=== PATIENT | female | born 1930 | race Caucasian/White ===

== ENCOUNTER 2017-05-25 20:03 | Emergency (ER) | payer MEDICARE, BC ==
[~2017-05-25] VITALS: Ht 172.7 cm; Wt 71.7 kg
[~2017-05-25 20:03] MED LIST: BYSTOLIC5 MG PO; DOCU100C28 PO; HYDR-2762 PO; MAGN400C PO; METF500T4 PO; MIRA50TA PO
--- NOTE | 2017-05-25 21:49 | PHYS DOC ---
Past Medical History Past Medical History: A-Fib, Diabetes-Type II, DVT, Hypertension Additional Past Surgical Histo: Back Additional Information: non smoker Alcohol Use: None Drug Use: None Adult General Chief Complaint Chief Complaint: SHOULDER INJURY HPI HPI Patient is a 87 year old female who presents with fall and left shoulder pain. She fell at 1900 PM. Did not strike head; no LOC. No neck or back pain. She landed on her left shoulder. No numbness or tingling of extremity. No other complaints or injuries Review of Systems Review of Systems Constitutional: Denies fever or chills Eyes: Denies change in visual acuity, redness, or eye pain HENT: Denies nasal congestion or sore throat Respiratory: Denies cough or shortness of breath Cardiovascular: No chest pain GI: Denies abdominal pain, nausea, vomiting, bloody stools or diarrhea : Denies dysuria or hematuria Musculoskeletal: POS joint pain Integument: Denies rash or skin lesions Neurologic: Denies headache, focal weakness or sensory changes Current Medications Current Medications Current Medications Medications (Trade) Dose Ordered Sig/Arnulfo Start Time Stop Time Status Last Admin Dose Admin Acetaminophen/ Codeine Phosphate (Tylenol #3) 1 tab 1X ONCE 05/25/17 23:15 05/25/17 23:16 DC 05/25/17 23:13 1 TAB Allergies Allergies Allergies Coded Allergies Type Severity Reaction Last Updated Verified celecoxib Allergy Intermediate Nausea and Vomiting 08/02/15 Yes Physical Exam Physical Exam Constitutional: Well developed, well nourished, no acute distress, non-toxic appearance. HENT: Normocephalic, atraumatic, bilateral external ears normal, oropharynx moist, no oral exudates, nose normal. No areas of trauma to her head Eyes: PERRLA, EOMI, conjunctiva normal, no discharge. Neck: Normal range of motion, no tenderness, supple, no stridor. Nontender to palpation of cervical spine Cardiovascular:Heart rate regular rhythm, no murmur Lungs & Thorax: Bilateral breath sounds clear to auscultation Abdomen: Bowel sounds normal, soft, no tenderness, no masses, no pulsatile masses. Skin: Warm, dry, no erythema, no rash. Back: No tenderness, no CVA tenderness. Extremities: Left shoulder: no cyanosis, no clubbing, no edema. Neurovascular intact distally. Limited range of motion due to pain. Pain on palpation of the left shoulder. Neurologic: Alert and oriented X 3, normal motor function, normal sensory function, no focal deficits noted. Psychologic: Affect normal, judgement normal, mood normal. Current Patient Data Vital Signs Vital Signs Date Time Temp Pulse Resp B/P (MAP) Pulse Ox O2 Delivery O2 Flow Rate FiO2 05/25/17 23:25 86 20 183/86 (118) 97 05/25/17 21:15 98.2 Room Air 98.2 Radiology/Procedures Radiology/Procedures Left shoulder x-ray interpreted by myself at 23:10 PM: Proximal humeral fracture , impacted. No displacement. Course & Med Decision Making Course & Med Decision Making Xray with fracture of proximal humerus. NVI distally. Patient tolerating fracture well. Sling placed and tylenol #3 dosed. Here with spouse. Informed to sleep in recliner for comfort. Call orthopedics in am. I have spoken with the patient and/or caregivers. I have explained the patient' s condition, diagnosis and treatment plan based on the information available to me at this time. I have answered the patient's and/or caregiver's questions and addressed any concerns. The patient and/or caregivers have as good an understanding of the patient's diagnosis, condition and treatment plan as can be expected at this point. The patient's condition is stable and appropriate for discharge from the emergency department. The patient will pursue further outpatient evaluation with the primary care physician or other designated or consulting physician as outlined in the discharge instructions. The patient and/or caregivers are agreeable to this plan of care and follow-up instructions have been explained in detail. The patient and/or caregivers have received these instructions in written format and have expressed an understanding of the discharge instructions. The patient and/or caregivers are aware that any significant change in condition or worsening of symptoms should prompt an immediate return to this or the closest emergency department or a call to 911. Dragon Disclaimer Dragon Disclaimer This electronic medical record was generated, in whole or in part, using a voice recognition dictation system. Departure Departure Impression: Primary Impression: Humeral head fracture Additional Impression: Fall Disposition: 01 HOME, SELF-CARE Condition: STABLE Referrals: KEILA ALAS (PCP) Patient Instructions: Shoulder Fracture (Proximal Humerus or Glenoid)-[facility] Additional Instructions: Leave and sling. Ice for the first 24 hours. Call orthopedic surgery in the morning to set up appointment. You will be more comfortable sleeping upright in a recliner. Scripts Acetaminophen With Codeine (ACETAMINOPHEN-COD #3 TABLET) 1 Each Tablet 1 TAB PO PRN Q4HRS Y for PAIN, #14 TAB Prov: TIMBO JOHNSON MD 05/25/17 Problem Qualifiers Primary Impression: Humeral head fracture Encounter type: initial encounter Fracture type: closed Laterality: left Qualified Codes: S42.292A - Other displaced fracture of upper end of left humerus, initial encounter for closed fracture Additional Impression: Fall Encounter type: initial encounter Qualified Codes: W19.XXXA - Unspecified fall, initial encounter TIMBO JOHNSON MD May 25, 2017 21:49
[2017-05-25] MEDS ORDERED: ACET1TAB33 PO (23:13)
[2017-05-25] MEDS ORDERED: ACETAMINOPHEN/CODEINE 300/30MG TABLET. PO ONE (23:15)
[2017-05-25 23:25] VITALS: BP 183/86
--- NOTE | 2017-05-26 08:37 | RAD ---
EXAM: Right humerus, 2 views; right shoulder, 2 views. HISTORY: Fall. COMPARISON: None. FINDINGS: Frontal and lateral views of the left humerus and internal and external rotation views of the left shoulder are obtained. There is a comminuted left humeral head and neck fracture. There is slight widening of the glenohumeral joint space which is likely projectional rather than due to a subluxation injury. There is left infrahilar atelectasis or pleural-parenchymal scarring. There is a metallic clip overlying the left lower thorax. There are healed left rib fractures. IMPRESSION: Comminuted left humeral head and neck fracture.
== END 2017-05-25 23:25 | disposition home or self-care (01) ==
LOC: ER 20:03
DX: S42.292A Other displaced fracture of upper end of left humerus, initial encounter for closed fracture (principal); E11.9 Type 2 diabetes mellitus without complications; I10 Essential (primary) hypertension; I48.91 Unspecified atrial fibrillation; Z86.718 Personal history of other venous thrombosis and embolism; Z88.8 Allergy status to other drugs, medicaments and biological substances; Z98.890 Other specified postprocedural states; W18.39XA Other fall on same level, initial encounter; Y93.89 Activity, other specified; Y99.8 Other external cause status; Y92.89 Other specified places as the place of occurrence of the external cause
CPT/HCPCS: 73030; 73060; 99284

== ENCOUNTER 2019-06-25 11:59 | Inpatient (IN) | payer MEDICARE, BC ==
[~2019-06-25] VITALS: Ht 172.7 cm; Wt 70.8 kg
[~2019-06-25 11:59] MED LIST changes: +ACET1TAB33 PO; +ASPI-612 PO; +ATOR40TA59 PO; +GLIP5TAB10 PO; -HYDR-2762 PO; +HYDR-2765 PO; +LOSA1TAB19 PO; +METF10007 PO; +METF500T16 PO; -METF500T4 PO; +METO25TA4 PO; +TICA90TA PO
[2019-06-25] MEDS ORDERED: ASPIRIN CHEWABLE 81 MG TABLET. PO ONE (12:15)
--- NOTE | 2019-06-25 12:18 | PHYS DOC ---
Past Medical History Past Medical History: A-Fib, Diabetes-Type II, DVT, Hypertension Additional Past Medical Histor: BREAST CANCER Additional Past Surgical Histo: Back Alcohol Use: None Drug Use: None Adult General Chief Complaint Chief Complaint: CHEST PAIN HPI HPI 89-year-old female who underlying history of hypertension, coronary artery disease with stent placement December 2017, diabetes presents to the emergency Department complaints of right shoulder blade pain, right chest pain off and on 2 days. She is well describes shortness of breath with exertion. Patient denies any nausea, vomiting, fever, abdominal pain. She does have a cough which has been somewhat productive today with yellow sputum. Given her complaints of chest pain and back pain she presented to the ER for further evaluation. Review of Systems Review of Systems Constitutional: Denies fever or chills [] Eyes: Denies change in visual acuity, redness, or eye pain [] HENT: Denies nasal congestion or sore throat [] Respiratory: cough, shortness of breath with exertion Cardiovascular: No additional information not addressed in HPI [] GI: Denies abdominal pain, nausea, vomiting, bloody stools or diarrhea [] : Denies dysuria or hematuria [] Musculoskeletal: pain in right back shoulder blade Neurologic: Denies headache, focal weakness or sensory changes [] All other systems were reviewed and found to be within normal limits, except as documented in this note. Current Medications Current Medications Current Medications Medications (Trade) Dose Ordered Sig/[facility] Start Time Stop Time Status Last Admin Dose Admin Aspirin (Children'S Aspirin) 324 mg 1X ONCE 06/25/19 12:15 06/25/19 12:16 DC 06/25/19 12:22 243 MG Nitroglycerin (Nitrostat) 0.4 mg PRN Q5MIN PRN 06/25/19 12:30 06/26/19 15:44 DC 06/25/19 12:58 0.4 MG Allergies Allergies Allergies Coded Allergies Type Severity Reaction Last Updated Verified celecoxib Allergy Intermediate Nausea and Vomiting 08/02/15 Yes Physical Exam Physical Exam Constitutional: Well developed, well nourished, no acute distress, non-toxic appearance. [] HENT: Normocephalic, atraumatic, bilateral external ears normal, oropharynx moist, no oral exudates, nose normal. [] Eyes: PERRLA, EOMI, conjunctiva normal, no discharge. [] Cardiovascular:Heart rate regular rhythm, no murmur [] Lungs & Thorax: Bilateral breath sounds clear to auscultation [] Abdomen: Bowel sounds normal, soft, no tenderness, no masses, no pulsatile masses. [] Skin: Warm, dry, no erythema, no rash. [] Back: No tenderness, no CVA tenderness. [] Extremities: No tenderness, no edema. [] Neurologic: Alert and oriented X 3, no focal deficits noted. [] Psychologic: Affect normal, judgement normal, mood normal. [] Current Patient Data Vital Signs Vital Signs Date Time Temp Pulse Resp B/P (MAP) Pulse Ox O2 Delivery O2 Flow Rate FiO2 06/25/19 13:22 72 19 127/60 (82) 95 Room Air 06/25/19 12:04 97.8 97.8 Lab Values Laboratory Tests Test 06/25/19 12:28 White Blood Count 6.9 x10^3/uL (4.0-11.0) Red Blood Count 3.89 x10^6/uL (3.50-5.40) Hemoglobin 12.2 g/dL (12.0-15.5) Hematocrit 35.9 % (36.0-47.0) L Mean Corpuscular Volume 92 fL (79-100) Mean Corpuscular Hemoglobin 31 pg (25-35) Mean Corpuscular Hemoglobin Concent 34 g/dL (31-37) Red Cell Distribution Width 16.3 % (11.5-14.5) H Platelet Count 202 x10^3/uL (140-400) Neutrophils (%) (Auto) 51 % (31-73) Lymphocytes (%) (Auto) 35 % (24-48) Monocytes (%) (Auto) 13 % (0-9) H Eosinophils (%) (Auto) 1 % (0-3) Basophils (%) (Auto) 1 % (0-3) Neutrophils # (Auto) 3.5 x10^3/uL (1.8-7.7) Lymphocytes # (Auto) 2.4 x10^3/uL (1.0-4.8) Monocytes # (Auto) 0.9 x10^3/uL (0.0-1.1) Eosinophils # (Auto) 0.1 x10^3/uL (0.0-0.7) Basophils # (Auto) 0.0 x10^3/uL (0.0-0.2) Sodium Level 132 mmol/L (136-145) L Potassium Level 4.4 mmol/L (3.5-5.1) Chloride Level 96 mmol/L (98-107) L Carbon Dioxide Level 27 mmol/L (21-32) Anion Gap 9 (6-14) Blood Urea Nitrogen 17 mg/dL (7-20) Creatinine 0.9 mg/dL (0.6-1.0) Estimated GFR (Cockcroft-Gault) 59.2 BUN/Creatinine Ratio 19 (6-20) Glucose Level 219 mg/dL (70-99) H Calcium Level 9.4 mg/dL (8.5-10.1) Total Bilirubin 0.6 mg/dL (0.2-1.0) Aspartate Amino Transferase (AST) 27 U/L (15-37) Alanine Aminotransferase (ALT) 33 U/L (14-59) Alkaline Phosphatase 85 U/L (46-116) Troponin I Quantitative < 0.017 ng/mL (0.000-0.055) YP-Hlv-H-Type Natriuretic Peptide 75 pg/mL (0-449) Total Protein 7.4 g/dL (6.4-8.2) Albumin 4.2 g/dL (3.4-5.0) Albumin/Globulin Ratio 1.3 (1.0-1.7) Laboratory Tests 06/25/19 12:28 Laboratory Tests 06/25/19 12:28 EKG EKG EKG reviewed, nonurgent, heart rate 72, left axis deviation, no evidence of ST elevation [place],[] Interpretation Time: Interpretation time 1210 Radiology/Procedures Radiology/Procedures [facility] [address] [place], [place] [id number] IMAGING REPORT Signed PATIENT: REAGAN EUCEDA LACCOUNT: [id number] : 1930 LOCATION: ER AGE: 89 SEX: F EXAM STATUS: PRE ER ORD. PHYSICIAN: ALEX NORWOOD MD REASON: chest pain PROCEDURE: PORTABLE CHEST 1V EXAM: Chest, single view. HISTORY: Chest pain. COMPARISON: None. FINDINGS: A frontal view of the chest is obtained. There is no infiltrate, pleural effusion or pneumothorax. The heart is normal in size. There are metallic clips overlying the left lower thorax. There are few calcified granulomas. There is nodularity overlying the upper lobes due to prominent first rib ends. There is a chronic left humeral neck fracture. IMPRESSION: No acute pulmonary finding. Electronically signed by: Coleen Bella MD (06/25/2019 12:25 PM) [facility] DICTATED and SIGNED BY: COLEEN BELLA MD DATE: 06/25/19 1225 [] Course & Med Decision Making Course & Med Decision Making Pertinent Labs and Imaging studies reviewed. (See chart for details) []89-year-old female who underlying history of hypertension, coronary artery disease with stent placement December 2017, diabetes presents to the emergency Department complaints of right shoulder blade pain, right chest pain off and on 2 days. She is well describes shortness of breath with exertion. Patient denies any nausea, vomiting, fever, abdominal pain. She does have a cough which has been somewhat productive today with yellow sputum. Given her complaints of chest pain and back pain she presented to the ER for further evaluation. Labs/Imaging reviewed Patient provided with ASA/NTG upon arrival CXR without acute process CTA chest reviewed EKG reviewed without acute changes Discussed admit with hospitalist (JADA Alvarenga Disclaimer Lyle Disclaimer This electronic medical record was generated, in whole or in part, using a voice recognition dictation system. The HEART Score for CP Pts HEART Score for Chest Pain: HEART Score for Chest Pain Response (Comments) Value History Moderately Suspicious 1 ECG Nonspecific Repolarizatio 1 Age > 65 2 Risk Factors >3 Risk Factors or Hx CAD 2 Troponin < Normal Limit 0 Total 6 Risk Factors: Risk Factors: DM, Current or recent (<one month) smoker, HTN, HLP, family history of CAD, obesity. Risk Scores: Score 0 - 3: 2.5% MACE over next 6 weeks - Discharge Home Score 4 - 6: 20.3% MACE over next 6 weeks - Admit for Clinical Observation Score 7 - 10: 72.7% MACE over next 6 weeks - Early Invasive Strategies Departure Departure Impression: Primary Impression: Chest pain Disposition: ADMITTED INPATIENT Admitting Physician: MIKAEL Referrals: KEILA ALAS (PCP) Scripts Acetaminophen (TYLENOL) 325 Mg Tablet 650 MG PO PRN Q4HRS PRN for FEVER for 30 Days, #60 TAB Prov: ROSMERY ALVARADO MD 06/26/19 Nitroglycerin (NITROSTAT) 0.4 Mg Tab.subl 0.4 MG SL PRN Q5MIN PRN for CHEST PAIN for 30 Days, #30 TAB Prov: ROSMERY ALVARADO MD 06/26/19 Problem Qualifiers Primary Impression: Chest pain Chest pain type: unspecified Qualified Codes: R07.9 - Chest pain, unspecified ALEX NORWOOD MD Jun 25, 2019 12:18
--- NOTE | 2019-06-25 12:28 | RAD ---
EXAM: Chest, single view. HISTORY: Chest pain. COMPARISON: None. FINDINGS: A frontal view of the chest is obtained. There is no infiltrate, pleural effusion or pneumothorax. The heart is normal in size. There are metallic clips overlying the left lower thorax. There are few calcified granulomas. There is nodularity overlying the upper lobes due to prominent first rib ends. There is a chronic left humeral neck fracture. IMPRESSION: No acute pulmonary finding. Electronically signed by: Coleen Ro MD (06/25/2019 12:25 PM) [facility]
[2019-06-25] MEDS ORDERED: NITROGLYCERIN SUBLINGUAL 0.4 MG BOTTLE OF 25. SL PRN ×2 (12:30→13:30)
[2019-06-25 12:40] LABS: BASO % 1 % (0-3); EOS # 0.1 x10^3/uL (0.0-0.7); EOS % 1 % (0-3); HEMATOCRIT 35.9 % (36.0-47.0); HEMOGLOBIN 12.2 g/dL (12.0-15.5); LYMPH # 2.4 x10^3/uL (1.0-4.8); LYMPH % 35 % (24-48); MEAN CORPUSCULAR HEMOGLOBIN 31 pg (25-35); MEAN CORPUSCULAR HGB CONC 34 g/dL (31-37); MEAN CORPUSCULAR VOLUME 92 fL (79-100); MONO # 0.9 x10^3/uL (0.0-1.1); MONO % 13 % (0-9); NEUT # 3.5 x10^3/uL (1.8-7.7); NEUT % 51 % (31-73); PLATELET COUNT 202 x10^3/uL (140-400); RED BLOOD COUNT 3.89 x10^6/uL (3.50-5.40); RED CELL DISTRIBUTION WIDTH 16.3 % (11.5-14.5); WHITE BLOOD COUNT 6.9 x10^3/uL (4.0-11.0)
[2019-06-25 12:50] LABS: CALCIUM 9.4 mg/dL (8.5-10.1); CREATININE 0.9 mg/dL (0.6-1.0); GFR 59.2; POTASSIUM 4.4 mmol/L (3.5-5.1)
[2019-06-25 12:56] LABS: ALBUMIN 4.2 g/dL (3.4-5.0); ALBUMIN/GLOBULIN RATIO 1.3 (1.0-1.7); TOTAL BILIRUBIN 0.6 mg/dL (0.2-1.0); TOTAL PROTEIN 7.4 g/dL (6.4-8.2)
[2019-06-25] MEDS ORDERED: ONDANSETRON PF 4 MG/2 ML VIAL. IV PRN (13:30)
[2019-06-25] MEDS ORDERED: ACETAMINOPHEN 325 MG TABLET. PO PRN (13:30)
[2019-06-25] MEDS ORDERED: IOHEXOL 350 MG/ML 100 ML VIAL. IV ONE (13:45)
[2019-06-25 14:50] VITALS: BP 145/63
[2019-06-25] MEDS ORDERED: ACETAMINOPHEN/CODEINE 300/30MG TABLET. PO PRN (15:15)
--- NOTE | 2019-06-25 15:19 | RAD ---
CT ANGIOGRAPHY CHEST History: Chest pain. Radiating to back. Technique: CT chest without and with contrast. Angiogram protocol. Coronal and sagittal reconstructions were performed. 3-D reconstructions were performed. Exposure: One or more of the following individualized dose reduction techniques were utilized for this examination: 1. Automated exposure control 2. Adjustment of the mA and/or kV according to patient size 3. Use of iterative reconstruction technique. Comparison: January 19, 2018 Findings: Chest: No evidence of intramural hematoma, dissection or aortic injury. Atheromatous calcination within the nonaneurysmal aorta. No pulmonary embolism. Coronary artery calcification. No consolidation or pleural effusion. Increased left upper lobe lobulated increased density nodule measures 1.1 x 0.9 cm (compared to 0.9 x 0.9 cm previously). Left lower lobe pleural-based nodule, unchanged. Scattered bilateral lower lobe and lingular subsegmental atelectasis. Left apical 3 mm pulmonary nodule, unchanged. Upper abdomen: Prior cholecystectomy. Bones: No pathologic osseous lesions. Impression: 1. No acute aortic pathology or pulmonary embolism. 2. Increased left upper lobe irregular pulmonary nodule with interval increased density compared to prior, may represent calcifying nodule. Recommend short-term follow-up. Electronically signed by: Richmond Boateng DO (06/25/2019 3:16 PM) [facility]
[2019-06-25] MEDS: glipiZIDE 5 MG TABLET PO SCH (17:00)
[2019-06-25] MEDS: metFORMIN 500 MG TABLET PO SCH (17:19)
--- NOTE | 2019-06-25 19:25 | HP ---
ADMIT DATE: 06/25/2019 CHIEF COMPLAINT: Chest pain. HISTORY OF PRESENT ILLNESS: The patient is a pleasant 89-year-old female who presented with chest pain. She has known coronary artery disease and she has AFib and previous cardiac stents back in 01/15. Basically, the pain that has been radiating from the back of the chest, we checked some enzymes so far negative, but we are concerned she could be having an acute coronary syndrome. I discussed the case with ER physician. We are going to admit the patient and consult Cardiology. PAST MEDICAL HISTORY: Previous cardiac stents, myocardial infarction, AFib, diabetes, hypertension, hyperlipidemia and breast cancer. ALLERGIES: CELEBREX. FAMILY HISTORY: Coronary artery disease. SOCIAL HISTORY: She does not drink, smoke or take drugs. She is a retired [employer]. She is still , had been for 67 years. [place]. MEDICATIONS: Reviewed, please refer to the MRAD. REVIEW OF SYSTEMS: GENERAL: No history of weight change, weakness or fevers. SKIN: No bruising, hair changes or rashes. EYES: No blurred, double or loss of vision. NOSE AND THROAT: No history of nosebleeds, hoarseness or sore throat. HEART: No history of palpitations, chest pain or shortness of breath on exertion. LUNGS: Denies cough, hemoptysis, wheezing or shortness of breath. GASTROINTESTINAL: Denies changes in appetite, nausea, vomiting, diarrhea or constipation. GENITOURINARY: No history of frequency, urgency, hesitancy or nocturia. NEUROLOGIC: Denies history of numbness, tingling, tremor or weakness. PSYCHIATRIC: No history of panic, anxiety or depression. ENDOCRINE: No history of heat or cold intolerance, polyuria or polydipsia. EXTREMITIES: Denies muscle weakness, joint pain, pain on walking or stiffness. PHYSICAL EXAMINATION: VITALS: Within normal limits and are stable. GENERAL: No apparent distress. Alert and oriented. HEENT: Head is normocephalic, atraumatic, pupils were equally round and reactive to light and accommodation. NECK: Supple, no JVD, no thyromegaly was noted. LUNGS: Clear to auscultation in all lung rodriguez without rhonchi or wheezing. HEART: RRR, S1, S2 present. Peripheral pulses intact, no obvious murmurs were noted. ABDOMEN: Soft, nontender. Positive bowel sounds no organomegaly, normal bowel sounds. EXTREMITIES: Without any cyanosis, clubbing, or edema. Pedal pulses intact, Homans sign is negative. NEUROLOGIC: Normal speech, normal tone. A and O x3, moves all extremities, no obvious focal deficits. PSYCHIATRIC: Normal affect, normal mood. Stable. SKIN: No ulcerations or rashes, good skin turgor, no jaundice. VASCULAR: Good capillary refill, neurovascular bundle appears to be intact. LABORATORY DATA: Troponin is 0. ASSESSMENT AND PLAN: Chest pain with known coronary artery disease. The patient has been admitted. We will check serial enzymes, serial EKGs, echocardiogram, consult Cardiology. DVT prophylaxis, home meds. Full code. DONOVAN SALGADO DO DR: AMITA/marc JOB#: [id number] / [id number]
[2019-06-25 19:40] VITALS: BP 142/67
[2019-06-25] MEDS ORDERED: ATORVASTATIN CALCIUM 40 MG TABLET. PO SCH (21:00)
[2019-06-25] MEDS: TICAGRELOR 90 MG TABLET. PO SCH (21:19)
[2019-06-25] MEDS: METOPROLOL TART IMMED RELEASE 25 MG TABLET. PO SCH (21:20)
[2019-06-25 23:15] VITALS: BP 122/59
[2019-06-26 03:54] VITALS: BP 117/58
[2019-06-26 07:00] VITALS: BP 137/62
[2019-06-26 07:52] LABS: BASO % 0 % (0-3); EOS # 0.1 x10^3/uL (0.0-0.7); EOS % 2 % (0-3); HEMATOCRIT 33.7 % (36.0-47.0); HEMOGLOBIN 11.5 g/dL (12.0-15.5); LYMPH # 2.8 x10^3/uL (1.0-4.8); LYMPH % 47 % (24-48); MEAN CORPUSCULAR HEMOGLOBIN 32 pg (25-35); MEAN CORPUSCULAR HGB CONC 34 g/dL (31-37); MEAN CORPUSCULAR VOLUME 92 fL (79-100); MONO % 17 % (0-9); NEUT # 2.1 x10^3/uL (1.8-7.7); NEUT % 34 % (31-73); PLATELET COUNT 181 x10^3/uL (140-400); RED BLOOD COUNT 3.66 x10^6/uL (3.50-5.40); RED CELL DISTRIBUTION WIDTH 16.1 % (11.5-14.5); WHITE BLOOD COUNT 6.1 x10^3/uL (4.0-11.0)
[2019-06-26] MEDS ORDERED: ASPIRIN ENTERIC COATED 81 MG TABLET.DR. PO SCH (08:00)
[2019-06-26] MEDS: metFORMIN 500 MG TABLET PO SCH (08:26)
[2019-06-26] MEDS: glipiZIDE 5 MG TABLET PO SCH (08:27)
[2019-06-26] MEDS: TICAGRELOR 90 MG TABLET. PO SCH (08:27)
[2019-06-26] MEDS: METOPROLOL TART IMMED RELEASE 25 MG TABLET. PO SCH (08:27)
[2019-06-26 08:29] LABS: ALBUMIN 3.8 g/dL (3.4-5.0); ALBUMIN/GLOBULIN RATIO 1.3 (1.0-1.7); CALCIUM 8.9 mg/dL (8.5-10.1); CREATININE 0.7 mg/dL (0.6-1.0); GFR 79.2; POTASSIUM 3.8 mmol/L (3.5-5.1); TOTAL BILIRUBIN 0.7 mg/dL (0.2-1.0); TOTAL PROTEIN 6.8 g/dL (6.4-8.2)
[2019-06-26] MEDS ORDERED: MAGNESIUM OXIDE 400 MG TABLET PO SCH (09:00)
[2019-06-26] MEDS ORDERED: LOSARTAN POTASSIUM 50 MG TABLET. PO SCH (09:00)
[2019-06-26] MEDS ORDERED: NON FORMULARY ITEM (Losartan/Hydrochlorothiazide (Losartan-Hctz 50-12.5 Mg Tab) 1 TAB) PO SCH (09:00)
[2019-06-26] MEDS ORDERED: hydroCHLOROthiazide 12.5 MG CAPSULE PO SCH (09:00)
[2019-06-26 11:00] VITALS: BP 110/54
--- NOTE | 2019-06-26 11:10 | PDOC ---
PROGRESS NOTES History of Present Illness History of Present Illness DISCHARGE DX - Chest pain , trop neg x 2 hx coronary artery disease. hyperlipidemia diabetes GERD No acute aortic pathology or pulmonary embolism. on cta left upper lobe irregular pulmonary nodule with interval increased density co mpared to prior, may represent calcifying nodule. admitted. cvc bed serial enzymes, serial EKGs, echocardiogram, pending consult Cardiology. DVT prophylaxis, home meds. Full code. accuchecks cardiology verbal ok for d/c today, see [facility] NEXT WEEK, PCP SOON 28 min pt exam, chart review,D/C PLANNING TIME > 50% of time spent with exam, chart review, pt care coordination Vitals Vitals Vital Signs Date Time Temp Pulse Resp B/P (MAP) Pulse Ox O2 Delivery O2 Flow Rate FiO2 06/26/19 08:28 72 137/62 06/26/19 08:00 Room Air 06/26/19 07:00 97.8 18 96 97.8 Physical Exam Physical Exam HEENT: Head is normocephalic, atraumatic, pupils were equally round and reactive to light and accommodation. NECK: Supple, no JVD, no thyromegaly was noted. LUNGS: Clear to auscultation in all lung rodriguez without rhonchi or wheezing. HEART: RRR, S1, S2 present. Peripheral pulses intact, no obvious murmurs were noted. ABDOMEN: Soft, nontender. Positive bowel sounds no organomegaly, normal bowel sounds. EXTREMITIES: Without any cyanosis, clubbing, or edema. Pedal pulses intact, Homans sign is negative. NEUROLOGIC: Normal speech, normal tone. A and O x3, moves all extremities, no obvious focal deficits. PSYCHIATRIC: Normal affect, normal mood. Stable. SKIN: No ulcerations or rashes, good skin turgor, no jaundice. VASCULAR: Good capillary refill, neurovascular bundle appears to be intact. General: Alert, Oriented X3, Cooperative, No acute distress Heart: Regular rate Lungs: Clear Abdomen: Normal bowel sounds, Soft Extremities: No cyanosis Labs LABS CT ANGIOGRAPHY CHEST History: Chest pain. Radiating to back. Technique: CT chest without and with contrast. Angiogram protocol. Coronal and sagittal reconstructions were performed. 3-D reconstructions were performed. Exposure: One or more of the following individualized dose reduction techniques were utilized for this examination: 1. Automated exposure control 2. Adjustment of the mA and/or kV according to patient size 3. Use of iterative reconstruction technique. Comparison: January 19, 2018 Findings: Chest: No evidence of intramural hematoma, dissection or aortic injury. Atheromatous calcination within the nonaneurysmal aorta. No pulmonary embolism. Coronary artery calcification. No consolidation or pleural effusion. Increased left upper lobe lobulated increased density nodule measures 1.1 x 0.9 cm (compared to 0.9 x 0.9 cm previously). Left lower lobe pleural-based nodule, unchanged. Scattered bilateral lower lobe and lingular subsegmental atelectasis. Left apical 3 mm pulmonary nodule, unchanged. Upper abdomen: Prior cholecystectomy. Bones: No pathologic osseous lesions. Impression: 1. No acute aortic pathology or pulmonary embolism. 2. Increased left upper lobe irregular pulmonary nodule with interval increased density compared to prior, may represent calcifying nodule. Recommend short-term follow-up. Electronically signed by: Ricmhond Boateng DO (06/25/2019 3:16 PM) [facility] Laboratory Tests Test 06/25/19 12:28 06/25/19 15:10 06/25/19 17:25 06/26/19 06:33 White Blood Count 6.9 x10^3/uL (4.0-11.0) 6.1 x10^3/uL (4.0-11.0) Red Blood Count 3.89 x10^6/uL (3.50-5.40) 3.66 x10^6/uL (3.50-5.40) Hemoglobin 12.2 g/dL (12.0-15.5) 11.5 g/dL (12.0-15.5) Hematocrit 35.9 % (36.0-47.0) 33.7 % (36.0-47.0) Mean Corpuscular Volume 92 fL (79-100) 92 fL (79-100) Mean Corpuscular Hemoglobin 31 pg (25-35) 32 pg (25-35) Mean Corpuscular Hemoglobin Concent 34 g/dL (31-37) 34 g/dL (31-37) Red Cell Distribution Width 16.3 % (11.5-14.5) 16.1 % (11.5-14.5) Platelet Count 202 x10^3/uL (140-400) 181 x10^3/uL (140-400) Neutrophils (%) (Auto) 51 % (31-73) 34 % (31-73) Lymphocytes (%) (Auto) 35 % (24-48) 47 % (24-48) Monocytes (%) (Auto) 13 % (0-9) 17 % (0-9) Eosinophils (%) (Auto) 1 % (0-3) 2 % (0-3) Basophils (%) (Auto) 1 % (0-3) 0 % (0-3) Neutrophils # (Auto) 3.5 x10^3/uL (1.8-7.7) 2.1 x10^3/uL (1.8-7.7) Lymphocytes # (Auto) 2.4 x10^3/uL (1.0-4.8) 2.8 x10^3/uL (1.0-4.8) Monocytes # (Auto) 0.9 x10^3/uL (0.0-1.1) 1.0 x10^3/uL (0.0-1.1) Eosinophils # (Auto) 0.1 x10^3/uL (0.0-0.7) 0.1 x10^3/uL (0.0-0.7) Basophils # (Auto) 0.0 x10^3/uL (0.0-0.2) 0.0 x10^3/uL (0.0-0.2) Sodium Level 132 mmol/L (136-145) 135 mmol/L (136-145) Potassium Level 4.4 mmol/L (3.5-5.1) 3.8 mmol/L (3.5-5.1) Chloride Level 96 mmol/L (98-107) 98 mmol/L (98-107) Carbon Dioxide Level 27 mmol/L (21-32) 28 mmol/L (21-32) Anion Gap 9 (6-14) 9 (6-14) Blood Urea Nitrogen 17 mg/dL (7-20) 12 mg/dL (7-20) Creatinine 0.9 mg/dL (0.6-1.0) 0.7 mg/dL (0.6-1.0) Estimated GFR (Cockcroft-Gault) 59.2 79.2 BUN/Creatinine Ratio 19 (6-20) 17 (6-20) Glucose Level 219 mg/dL (70-99) 106 mg/dL (70-99) Calcium Level 9.4 mg/dL (8.5-10.1) 8.9 mg/dL (8.5-10.1) Total Bilirubin 0.6 mg/dL (0.2-1.0) 0.7 mg/dL (0.2-1.0) Aspartate Amino Transf (AST/SGOT) 27 U/L (15-37) 35 U/L (15-37) Alanine Aminotransferase (ALT/SGPT) 33 U/L (14-59) 30 U/L (14-59) Alkaline Phosphatase 85 U/L (46-116) 75 U/L (46-116) Troponin I Quantitative < 0.017 ng/mL (0.000-0.055) < 0.017 ng/mL (0.000-0.055) JQ-Nll-L-Type Natriuretic Peptide 75 pg/mL (0-449) Total Protein 7.4 g/dL (6.4-8.2) 6.8 g/dL (6.4-8.2) Albumin 4.2 g/dL (3.4-5.0) 3.8 g/dL (3.4-5.0) Albumin/Globulin Ratio 1.3 (1.0-1.7) 1.3 (1.0-1.7) Glucose (Fingerstick) 174 mg/dL (70-99) Magnesium Level 1.9 mg/dL (1.8-2.4) Test 06/26/19 07:42 Glucose (Fingerstick) 142 mg/dL (70-99) Assessment and Plan Assessmemt and Plan Problems Medical Problems: (1) Chest pain Status: Acute Comment Review of Relevant I have reviewed the following items all (where applicable) has been applied. Labs Laboratory Tests Test 06/25/19 12:28 06/25/19 15:10 06/25/19 17:25 06/26/19 06:33 White Blood Count 6.9 x10^3/uL (4.0-11.0) 6.1 x10^3/uL (4.0-11.0) Red Blood Count 3.89 x10^6/uL (3.50-5.40) 3.66 x10^6/uL (3.50-5.40) Hemoglobin 12.2 g/dL (12.0-15.5) 11.5 g/dL (12.0-15.5) Hematocrit 35.9 % (36.0-47.0) 33.7 % (36.0-47.0) Mean Corpuscular Volume 92 fL (79-100) 92 fL (79-100) Mean Corpuscular Hemoglobin 31 pg (25-35) 32 pg (25-35) Mean Corpuscular Hemoglobin Concent 34 g/dL (31-37) 34 g/dL (31-37) Red Cell Distribution Width 16.3 % (11.5-14.5) 16.1 % (11.5-14.5) Platelet Count 202 x10^3/uL (140-400) 181 x10^3/uL (140-400) Neutrophils (%) (Auto) 51 % (31-73) 34 % (31-73) Lymphocytes (%) (Auto) 35 % (24-48) 47 % (24-48) Monocytes (%) (Auto) 13 % (0-9) 17 % (0-9) Eosinophils (%) (Auto) 1 % (0-3) 2 % (0-3) Basophils (%) (Auto) 1 % (0-3) 0 % (0-3) Neutrophils # (Auto) 3.5 x10^3/uL (1.8-7.7) 2.1 x10^3/uL (1.8-7.7) Lymphocytes # (Auto) 2.4 x10^3/uL (1.0-4.8) 2.8 x10^3/uL (1.0-4.8) Monocytes # (Auto) 0.9 x10^3/uL (0.0-1.1) 1.0 x10^3/uL (0.0-1.1) Eosinophils # (Auto) 0.1 x10^3/uL (0.0-0.7) 0.1 x10^3/uL (0.0-0.7) Basophils # (Auto) 0.0 x10^3/uL (0.0-0.2) 0.0 x10^3/uL (0.0-0.2) Sodium Level 132 mmol/L (136-145) 135 mmol/L (136-145) Potassium Level 4.4 mmol/L (3.5-5.1) 3.8 mmol/L (3.5-5.1) Chloride Level 96 mmol/L (98-107) 98 mmol/L (98-107) Carbon Dioxide Level 27 mmol/L (21-32) 28 mmol/L (21-32) Anion Gap 9 (6-14) 9 (6-14) Blood Urea Nitrogen 17 mg/dL (7-20) 12 mg/dL (7-20) Creatinine 0.9 mg/dL (0.6-1.0) 0.7 mg/dL (0.6-1.0) Estimated GFR (Cockcroft-Gault) 59.2 79.2 BUN/Creatinine Ratio 19 (6-20) 17 (6-20) Glucose Level 219 mg/dL (70-99) 106 mg/dL (70-99) Calcium Level 9.4 mg/dL (8.5-10.1) 8.9 mg/dL (8.5-10.1) Total Bilirubin 0.6 mg/dL (0.2-1.0) 0.7 mg/dL (0.2-1.0) Aspartate Amino Transf (AST/SGOT) 27 U/L (15-37) 35 U/L (15-37) Alanine Aminotransferase (ALT/SGPT) 33 U/L (14-59) 30 U/L (14-59) Alkaline Phosphatase 85 U/L (46-116) 75 U/L (46-116) Troponin I Quantitative < 0.017 ng/mL (0.000-0.055) < 0.017 ng/mL (0.000-0.055) HW-Qri-L-Type Natriuretic Peptide 75 pg/mL (0-449) Total Protein 7.4 g/dL (6.4-8.2) 6.8 g/dL (6.4-8.2) Albumin 4.2 g/dL (3.4-5.0) 3.8 g/dL (3.4-5.0) Albumin/Globulin Ratio 1.3 (1.0-1.7) 1.3 (1.0-1.7) Glucose (Fingerstick) 174 mg/dL (70-99) Magnesium Level 1.9 mg/dL (1.8-2.4) Test 06/26/19 07:42 Glucose (Fingerstick) 142 mg/dL (70-99) Laboratory Tests Test 06/25/19 12:28 06/25/19 15:10 06/25/19 17:25 06/26/19 06:33 White Blood Count 6.9 x10^3/uL (4.0-11.0) 6.1 x10^3/uL (4.0-11.0) Red Blood Count 3.89 x10^6/uL (3.50-5.40) 3.66 x10^6/uL (3.50-5.40) Hemoglobin 12.2 g/dL (12.0-15.5) 11.5 g/dL (12.0-15.5) Hematocrit 35.9 % (36.0-47.0) 33.7 % (36.0-47.0) Mean Corpuscular Volume 92 fL (79-100) 92 fL (79-100) Mean Corpuscular Hemoglobin 31 pg (25-35) 32 pg (25-35) Mean Corpuscular Hemoglobin Concent 34 g/dL (31-37) 34 g/dL (31-37) Red Cell Distribution Width 16.3 % (11.5-14.5) 16.1 % (11.5-14.5) Platelet Count 202 x10^3/uL (140-400) 181 x10^3/uL (140-400) Neutrophils (%) (Auto) 51 % (31-73) 34 % (31-73) Lymphocytes (%) (Auto) 35 % (24-48) 47 % (24-48) Monocytes (%) (Auto) 13 % (0-9) 17 % (0-9) Eosinophils (%) (Auto) 1 % (0-3) 2 % (0-3) Basophils (%) (Auto) 1 % (0-3) 0 % (0-3) Neutrophils # (Auto) 3.5 x10^3/uL (1.8-7.7) 2.1 x10^3/uL (1.8-7.7) Lymphocytes # (Auto) 2.4 x10^3/uL (1.0-4.8) 2.8 x10^3/uL (1.0-4.8) Monocytes # (Auto) 0.9 x10^3/uL (0.0-1.1) 1.0 x10^3/uL (0.0-1.1) Eosinophils # (Auto) 0.1 x10^3/uL (0.0-0.7) 0.1 x10^3/uL (0.0-0.7) Basophils # (Auto) 0.0 x10^3/uL (0.0-0.2) 0.0 x10^3/uL (0.0-0.2) Sodium Level 132 mmol/L (136-145) 135 mmol/L (136-145) Potassium Level 4.4 mmol/L (3.5-5.1) 3.8 mmol/L (3.5-5.1) Chloride Level 96 mmol/L (98-107) 98 mmol/L (98-107) Carbon Dioxide Level 27 mmol/L (21-32) 28 mmol/L (21-32) Anion Gap 9 (6-14) 9 (6-14) Blood Urea Nitrogen 17 mg/dL (7-20) 12 mg/dL (7-20) Creatinine 0.9 mg/dL (0.6-1.0) 0.7 mg/dL (0.6-1.0) Estimated GFR (Cockcroft-Gault) 59.2 79.2 BUN/Creatinine Ratio 19 (6-20) 17 (6-20) Glucose Level 219 mg/dL (70-99) 106 mg/dL (70-99) Calcium Level 9.4 mg/dL (8.5-10.1) 8.9 mg/dL (8.5-10.1) Total Bilirubin 0.6 mg/dL (0.2-1.0) 0.7 mg/dL (0.2-1.0) Aspartate Amino Transf (AST/SGOT) 27 U/L (15-37) 35 U/L (15-37) Alanine Aminotransferase (ALT/SGPT) 33 U/L (14-59) 30 U/L (14-59) Alkaline Phosphatase 85 U/L (46-116) 75 U/L (46-116) Troponin I Quantitative < 0.017 ng/mL (0.000-0.055) < 0.017 ng/mL (0.000-0.055) DG-Fyh-X-Type Natriuretic Peptide 75 pg/mL (0-449) Total Protein 7.4 g/dL (6.4-8.2) 6.8 g/dL (6.4-8.2) Albumin 4.2 g/dL (3.4-5.0) 3.8 g/dL (3.4-5.0) Albumin/Globulin Ratio 1.3 (1.0-1.7) 1.3 (1.0-1.7) Glucose (Fingerstick) 174 mg/dL (70-99) Magnesium Level 1.9 mg/dL (1.8-2.4) Test 06/26/19 07:42 Glucose (Fingerstick) 142 mg/dL (70-99) Medications Current Medications Aspirin (Children'S Aspirin) 324 mg 1X ONCE PO Last administered on 06/25/19at 12:22; Start 06/25/19 at 12:15; Stop 06/25/19 at 12:16; Status DC Nitroglycerin (Nitrostat) 0.4 mg PRN Q5MIN PRN SL CHEST PAIN Last administered on 06/25/19at 12:58; Start 06/25/19 at 12:30 Ondansetron HCl (Zofran) 4 mg PRN Q8HRS PRN IV NAUSEA/VOMITING; Start 06/25/19 at 13:30; Stop 06/26/19 at 13:29 Acetaminophen (Tylenol) 650 mg PRN Q4HRS PRN PO FEVER; Start 06/25/19 at 13:30; Stop 06/26/19 at 13:29 Nitroglycerin (Nitrostat) 0.4 mg PRN Q5MIN PRN SL CHEST PAIN; Start 06/25/19 at 13:30; Stop 06/26/19 at 13:29; Status UNV Iohexol (Omnipaque 350 Mg/ml) 90 ml 1X ONCE IV Last administered on 06/25/19at 14:02; Start 06/25/19 at 13:45; Stop 06/25/19 at 13:46; Status DC Acetaminophen/ Codeine Phosphate (Tylenol #3) 1 tab PRN Q4HRS PRN PO PAIN; Start 06/25/19 at 15:15 Aspirin (Ecotrin) 81 mg DAILYWBKFT PO Last administered on 06/26/19 08:27; Start 06/26/19 at 08:00 Atorvastatin Calcium (Lipitor) 40 mg QHS PO Last administered on 06/25/19 21:19; Start 06/25/19 at 21:00 Glipizide (Glucotrol) 5 mg BIDWMEALS PO Last administered on 06/26/19 08:27; Start 06/25/19 at 17:00 Metformin HCl (Glucophage) 500 mg BIDWMEALS PO Last administered on 06/26/19 08:26; Start 06/25/19 at 17:00 Metoprolol Tartrate (Lopressor) 12.5 mg BID PO Last administered on 06/26/19 08:27; Start 06/25/19 at 21:00 Ticagrelor (Brilinta) 90 mg BID PO Last administered on 06/26/19 08:27; Start 06/25/19 at 21:00 Non-Formulary Medication (Losartan/ Hydrochlorothiazide (Losartan-Hctz 50-12.5 Mg Tab)) 1 tab DAILY PO ; Start 06/26/19 at 09:00; Status UNV Magnesium Oxide (Magnesium Oxide) 400 mg DAILY PO Last administered on 06/26/19 08:27; Start 06/26/19 at 09:00 Losartan Potassium (Cozaar) 50 mg DAILY PO Last administered on 06/26/19 08:28; Start 06/26/19 at 09:00 Hydrochlorothiazide (Microzide) 12.5 mg DAILY PO Last administered on 06/26/19 08:27; Start 06/26/19 at 09:00 Active Scripts Active Aspirin Ec (Aspirin) 81 Mg Tablet.dr 81 Mg PO DAILYWBKFT 60 Days Metoprolol Tartrate 25 Mg Tablet 12.5 Mg PO BID 60 Days Atorvastatin Calcium 40 Mg Tablet 40 Mg PO QHS 90 Days Brilinta (Ticagrelor) 90 Mg Tablet 90 Mg PO BID 60 Days Acetaminophen-Cod #3 Tablet (Acetaminophen/Codeine Phosphate) 1 Each Tablet 1 Tab PO PRN Q4HRS PRN Reported Glipizide 5 Mg Tablet 1 Tab PO BID Losartan-Hctz 50-12.5 Mg Tab (Losartan/Hydrochlorothiazide) 1 Each Tablet 1 Tab PO DAILY Magnesium (Magnesium Oxide) 400 Mg Capsule 500 Mg PO DAILY LAST DOSE GIVEN: DATE: 11/22 TIME: 9 am NEXT DOSE DUE: DATE: 11/23 TIME: 9 am Metformin Hcl 500 Mg Tablet 1 Tab PO BID LAST DOSE GIVEN: DATE: 11/22 TIME: 9 am NEXT DOSE DUE: DATE: 11/22 TIME: 5 pm Vitals/I & O Vital Sign - Last 24 Hours 06/25/19 06/25/19 06/25/19 06/25/19 12:04 12:36 12:57 12:58 Temp 97.8 97.8 Pulse 84 72 70 73 Resp 20 18 24 B/P (MAP) 163/68 (99) 147/65 (92) 149/66 (93) Pulse Ox 97 97 97 O2 Delivery Room Air Room Air Room Air 06/25/19 06/25/19 06/25/19 06/25/19 13:02 13:07 13:12 13:22 Pulse 78 76 74 72 Resp 17 16 22 19 B/P (MAP) 123/58 (79) 117/56 (76) 123/61 (81) 127/60 (82) Pulse Ox 95 94 94 95 O2 Delivery Room Air Room Air Room Air Room Air 06/25/19 06/25/19 06/25/19 06/25/19 13:32 13:47 14:50 15:36 Temp 96.7 96.7 Pulse 70 64 65 Resp 17 16 18 B/P (MAP) 125/63 (83) 123/58 (79) 145/63 (90) Pulse Ox 94 96 97 O2 Delivery Room Air Room Air Room Air Room Air 06/25/19 06/25/19 06/25/19 06/25/19 19:40 20:00 21:20 23:15 Temp 97.8 97.9 97.8 97.9 Pulse 69 78 75 Resp 21 20 B/P (MAP) 142/67 (92) 142/67 122/59 (80) Pulse Ox 97 97 O2 Delivery Room Air Room Air Room Air 06/26/19 06/26/19 06/26/19 06/26/19 03:54 07:00 08:00 08:27 Temp 97.6 97.8 97.6 97.8 Pulse 70 72 72 Resp 18 18 B/P (MAP) 117/58 (77) 137/62 (87) 137/62 Pulse Ox 96 96 O2 Delivery Room Air Room Air Room Air 06/26/19 08:28 Pulse 72 B/P (MAP) 137/62 Intake and Output 06/25/19 06/25/19 06/26/19 15:00 23:00 07:00 Intake Total 200 ml 30 ml Output Total 900 ml Balance 200 ml -870 ml ROSMERY ALVARADO MD Jun 26, 2019 11:10
--- NOTE | 2019-06-26 12:22 | PDOC2 ---
CONSULT Date of Consult Date of Consult DATE: 06/26/19 TIME: 12:22 Reason for Consult Reason for Consult: Chest pain Referring Physician Referring Physician: Dr. Salamanca Identification/Chief Complaint Chief Complaint Chest pain Source Source: Chart review, Patient History of Present Illness Reason for Visit: 89-year-old female with history of coronary artery disease presented with right- sided chest pain associated with back pain not related to exertion or food intake. She denied any orthopnea/PND, palpitations or syncope. Past Medical History Cardiovascular: CAD, HTN, Hyperlipidemia GI: GERD Endocrine: Diabetes Past Surgical History Past Surgical History: Appendectomy, Cholecystectomy, Hysterectomy Family History Family History: Hypertension Social History ALCOHOL: none Drugs: None Current Problem List Problem List Problems Medical Problems: (1) Chest pain Status: Acute Current Medications Current Medications Current Medications Aspirin (Children'S Aspirin) 324 mg 1X ONCE PO Last administered on 06/25/19at 12:22; Start 06/25/19 at 12:15; Stop 06/25/19 at 12:16; Status DC Nitroglycerin (Nitrostat) 0.4 mg PRN Q5MIN PRN SL CHEST PAIN Last administered on 06/25/19at 12:58; Start 06/25/19 at 12:30 Ondansetron HCl (Zofran) 4 mg PRN Q8HRS PRN IV NAUSEA/VOMITING; Start 06/25/19 at 13:30; Stop 06/26/19 at 13:29 Acetaminophen (Tylenol) 650 mg PRN Q4HRS PRN PO FEVER; Start 06/25/19 at 13:30; Stop 06/26/19 at 13:29 Nitroglycerin (Nitrostat) 0.4 mg PRN Q5MIN PRN SL CHEST PAIN; Start 06/25/19 at 13:30; Stop 06/26/19 at 13:29; Status UNV Iohexol (Omnipaque 350 Mg/ml) 90 ml 1X ONCE IV Last administered on 06/25/19at 14:02; Start 06/25/19 at 13:45; Stop 06/25/19 at 13:46; Status DC Acetaminophen/ Codeine Phosphate (Tylenol #3) 1 tab PRN Q4HRS PRN PO PAIN; Start 06/25/19 at 15:15 Aspirin (Ecotrin) 81 mg DAILYWBKFT PO Last administered on 06/26/19 08:27; Start 06/26/19 at 08:00 Atorvastatin Calcium (Lipitor) 40 mg QHS PO Last administered on 06/25/19 21:19; Start 06/25/19 at 21:00 Glipizide (Glucotrol) 5 mg BIDWMEALS PO Last administered on 06/26/19 08:27; Start 06/25/19 at 17:00 Metformin HCl (Glucophage) 500 mg BIDWMEALS PO Last administered on 06/26/19 08:26; Start 06/25/19 at 17:00 Metoprolol Tartrate (Lopressor) 12.5 mg BID PO Last administered on 06/26/19 08:27; Start 06/25/19 at 21:00 Ticagrelor (Brilinta) 90 mg BID PO Last administered on 06/26/19 08:27; Start 06/25/19 at 21:00 Non-Formulary Medication (Losartan/ Hydrochlorothiazide (Losartan-Hctz 50-12.5 Mg Tab)) 1 tab DAILY PO ; Start 06/26/19 at 09:00; Status UNV Magnesium Oxide (Magnesium Oxide) 400 mg DAILY PO Last administered on 06/26/19 08:27; Start 06/26/19 at 09:00 Losartan Potassium (Cozaar) 50 mg DAILY PO Last administered on 06/26/19 08:28; Start 06/26/19 at 09:00 Hydrochlorothiazide (Microzide) 12.5 mg DAILY PO Last administered on 06/26/19 08:27; Start 06/26/19 at 09:00 Active Scripts Active Aspirin Ec (Aspirin) 81 Mg Tablet.dr 81 Mg PO DAILYWBKFT 60 Days Metoprolol Tartrate 25 Mg Tablet 12.5 Mg PO BID 60 Days Atorvastatin Calcium 40 Mg Tablet 40 Mg PO QHS 90 Days Brilinta (Ticagrelor) 90 Mg Tablet 90 Mg PO BID 60 Days Acetaminophen-Cod #3 Tablet (Acetaminophen/Codeine Phosphate) 1 Each Tablet 1 Tab PO PRN Q4HRS PRN Reported Glipizide 5 Mg Tablet 1 Tab PO BID Losartan-Hctz 50-12.5 Mg Tab (Losartan/Hydrochlorothiazide) 1 Each Tablet 1 Tab PO DAILY Magnesium (Magnesium Oxide) 400 Mg Capsule 500 Mg PO DAILY LAST DOSE GIVEN: DATE: 11/22 TIME: 9 am NEXT DOSE DUE: DATE: 11/23 TIME: 9 am Metformin Hcl 500 Mg Tablet 1 Tab PO BID LAST DOSE GIVEN: DATE: 11/22 TIME: 9 am NEXT DOSE DUE: DATE: 11/22 TIME: 5 pm Allergies Allergies: Coded Allergies: celecoxib (Verified Allergy, Intermediate, Nausea and Vomiting, 08/02/15) ROS PSYCHOLOGICAL ROS: No: Hallucinations Eyes: No Loss of vision HEENT: No: Epistaxis Respiratory: No: Shortness of breath Cardiovascular: yes Chest Pain Gastrointestinal: No Vomiting, No Diarrhea Genitourinary: No Hematuria Neurological: No Seizures Skin: No Rash Physical Exam General: Alert, Oriented X3 HEENT: Atraumatic Lungs: Clear to auscultation Heart: Regular rate Abdomen: Soft Extremities: No edema Neuro: Normal speech Psych/Mental Status: Mood NL Vitals VITALS Vital Signs Date Time Temp Pulse Resp B/P (MAP) Pulse Ox O2 Delivery O2 Flow Rate FiO2 06/26/19 11:00 97.4 68 18 110/54 (72) 99 Room Air 97.4 Labs Labs Laboratory Tests Test 06/25/19 12:28 06/25/19 15:10 06/25/19 17:25 06/26/19 06:33 White Blood Count 6.9 x10^3/uL (4.0-11.0) 6.1 x10^3/uL (4.0-11.0) Red Blood Count 3.89 x10^6/uL (3.50-5.40) 3.66 x10^6/uL (3.50-5.40) Hemoglobin 12.2 g/dL (12.0-15.5) 11.5 g/dL (12.0-15.5) Hematocrit 35.9 % (36.0-47.0) 33.7 % (36.0-47.0) Mean Corpuscular Volume 92 fL (79-100) 92 fL (79-100) Mean Corpuscular Hemoglobin 31 pg (25-35) 32 pg (25-35) Mean Corpuscular Hemoglobin Concent 34 g/dL (31-37) 34 g/dL (31-37) Red Cell Distribution Width 16.3 % (11.5-14.5) 16.1 % (11.5-14.5) Platelet Count 202 x10^3/uL (140-400) 181 x10^3/uL (140-400) Neutrophils (%) (Auto) 51 % (31-73) 34 % (31-73) Lymphocytes (%) (Auto) 35 % (24-48) 47 % (24-48) Monocytes (%) (Auto) 13 % (0-9) 17 % (0-9) Eosinophils (%) (Auto) 1 % (0-3) 2 % (0-3) Basophils (%) (Auto) 1 % (0-3) 0 % (0-3) Neutrophils # (Auto) 3.5 x10^3/uL (1.8-7.7) 2.1 x10^3/uL (1.8-7.7) Lymphocytes # (Auto) 2.4 x10^3/uL (1.0-4.8) 2.8 x10^3/uL (1.0-4.8) Monocytes # (Auto) 0.9 x10^3/uL (0.0-1.1) 1.0 x10^3/uL (0.0-1.1) Eosinophils # (Auto) 0.1 x10^3/uL (0.0-0.7) 0.1 x10^3/uL (0.0-0.7) Basophils # (Auto) 0.0 x10^3/uL (0.0-0.2) 0.0 x10^3/uL (0.0-0.2) Sodium Level 132 mmol/L (136-145) 135 mmol/L (136-145) Potassium Level 4.4 mmol/L (3.5-5.1) 3.8 mmol/L (3.5-5.1) Chloride Level 96 mmol/L (98-107) 98 mmol/L (98-107) Carbon Dioxide Level 27 mmol/L (21-32) 28 mmol/L (21-32) Anion Gap 9 (6-14) 9 (6-14) Blood Urea Nitrogen 17 mg/dL (7-20) 12 mg/dL (7-20) Creatinine 0.9 mg/dL (0.6-1.0) 0.7 mg/dL (0.6-1.0) Estimated GFR (Cockcroft-Gault) 59.2 79.2 BUN/Creatinine Ratio 19 (6-20) 17 (6-20) Glucose Level 219 mg/dL (70-99) 106 mg/dL (70-99) Calcium Level 9.4 mg/dL (8.5-10.1) 8.9 mg/dL (8.5-10.1) Total Bilirubin 0.6 mg/dL (0.2-1.0) 0.7 mg/dL (0.2-1.0) Aspartate Amino Transf (AST/SGOT) 27 U/L (15-37) 35 U/L (15-37) Alanine Aminotransferase (ALT/SGPT) 33 U/L (14-59) 30 U/L (14-59) Alkaline Phosphatase 85 U/L (46-116) 75 U/L (46-116) Troponin I Quantitative < 0.017 ng/mL (0.000-0.055) < 0.017 ng/mL (0.000-0.055) PV-Bsr-L-Type Natriuretic Peptide 75 pg/mL (0-449) Total Protein 7.4 g/dL (6.4-8.2) 6.8 g/dL (6.4-8.2) Albumin 4.2 g/dL (3.4-5.0) 3.8 g/dL (3.4-5.0) Albumin/Globulin Ratio 1.3 (1.0-1.7) 1.3 (1.0-1.7) Glucose (Fingerstick) 174 mg/dL (70-99) Magnesium Level 1.9 mg/dL (1.8-2.4) Test 06/26/19 07:42 06/26/19 11:56 Glucose (Fingerstick) 142 mg/dL (70-99) 127 mg/dL (70-99) Laboratory Tests Test 06/25/19 12:28 06/25/19 15:10 06/25/19 17:25 06/26/19 06:33 White Blood Count 6.9 x10^3/uL (4.0-11.0) 6.1 x10^3/uL (4.0-11.0) Red Blood Count 3.89 x10^6/uL (3.50-5.40) 3.66 x10^6/uL (3.50-5.40) Hemoglobin 12.2 g/dL (12.0-15.5) 11.5 g/dL (12.0-15.5) Hematocrit 35.9 % (36.0-47.0) 33.7 % (36.0-47.0) Mean Corpuscular Volume 92 fL (79-100) 92 fL (79-100) Mean Corpuscular Hemoglobin 31 pg (25-35) 32 pg (25-35) Mean Corpuscular Hemoglobin Concent 34 g/dL (31-37) 34 g/dL (31-37) Red Cell Distribution Width 16.3 % (11.5-14.5) 16.1 % (11.5-14.5) Platelet Count 202 x10^3/uL (140-400) 181 x10^3/uL (140-400) Neutrophils (%) (Auto) 51 % (31-73) 34 % (31-73) Lymphocytes (%) (Auto) 35 % (24-48) 47 % (24-48) Monocytes (%) (Auto) 13 % (0-9) 17 % (0-9) Eosinophils (%) (Auto) 1 % (0-3) 2 % (0-3) Basophils (%) (Auto) 1 % (0-3) 0 % (0-3) Neutrophils # (Auto) 3.5 x10^3/uL (1.8-7.7) 2.1 x10^3/uL (1.8-7.7) Lymphocytes # (Auto) 2.4 x10^3/uL (1.0-4.8) 2.8 x10^3/uL (1.0-4.8) Monocytes # (Auto) 0.9 x10^3/uL (0.0-1.1) 1.0 x10^3/uL (0.0-1.1) Eosinophils # (Auto) 0.1 x10^3/uL (0.0-0.7) 0.1 x10^3/uL (0.0-0.7) Basophils # (Auto) 0.0 x10^3/uL (0.0-0.2) 0.0 x10^3/uL (0.0-0.2) Sodium Level 132 mmol/L (136-145) 135 mmol/L (136-145) Potassium Level 4.4 mmol/L (3.5-5.1) 3.8 mmol/L (3.5-5.1) Chloride Level 96 mmol/L (98-107) 98 mmol/L (98-107) Carbon Dioxide Level 27 mmol/L (21-32) 28 mmol/L (21-32) Anion Gap 9 (6-14) 9 (6-14) Blood Urea Nitrogen 17 mg/dL (7-20) 12 mg/dL (7-20) Creatinine 0.9 mg/dL (0.6-1.0) 0.7 mg/dL (0.6-1.0) Estimated GFR (Cockcroft-Gault) 59.2 79.2 BUN/Creatinine Ratio 19 (6-20) 17 (6-20) Glucose Level 219 mg/dL (70-99) 106 mg/dL (70-99) Calcium Level 9.4 mg/dL (8.5-10.1) 8.9 mg/dL (8.5-10.1) Total Bilirubin 0.6 mg/dL (0.2-1.0) 0.7 mg/dL (0.2-1.0) Aspartate Amino Transf (AST/SGOT) 27 U/L (15-37) 35 U/L (15-37) Alanine Aminotransferase (ALT/SGPT) 33 U/L (14-59) 30 U/L (14-59) Alkaline Phosphatase 85 U/L (46-116) 75 U/L (46-116) Troponin I Quantitative < 0.017 ng/mL (0.000-0.055) < 0.017 ng/mL (0.000-0.055) PN-Zek-O-Type Natriuretic Peptide 75 pg/mL (0-449) Total Protein 7.4 g/dL (6.4-8.2) 6.8 g/dL (6.4-8.2) Albumin 4.2 g/dL (3.4-5.0) 3.8 g/dL (3.4-5.0) Albumin/Globulin Ratio 1.3 (1.0-1.7) 1.3 (1.0-1.7) Glucose (Fingerstick) 174 mg/dL (70-99) Magnesium Level 1.9 mg/dL (1.8-2.4) Test 06/26/19 07:42 06/26/19 11:56 Glucose (Fingerstick) 142 mg/dL (70-99) 127 mg/dL (70-99) Assessment/Plan Assessment/Plan 1. Chest pain with atypical features and most probably musculoskeletal. Myocardial infarction has been ruled out. Patient has no history of coronary artery disease and had undergone PCI says KIARA to LAD in December 2017. She has residual LCx/RCA disease that was managed medically. Her 2-D echo at that time showed LVEF 45%. She is presently chest pain-free. Continue current secondary prevention measures and follow-up with our office as previously scheduled. 2. Hypertension: Controlled 3. Hyperlipidemia: Statins 4. Diabetes mellitus type 2: Per IM Thank you for your consultation STEPHANIE MEADOWS MD Jun 26, 2019 12:22
--- NOTE | 2019-06-26 13:06 | PDOC3 ---
Discharge Summary Date of Admission: Jun 25, 2019 Date of Discharge: Jun 26, 2019 Follow-Up: 3-5 days Admitting Diagnosis comment: DISCHARGE DX - Chest pain , trop neg x 2 hx coronary artery disease. hyperlipidemia diabetes GERD No acute aortic pathology or pulmonary embolism. on cta left upper lobe irregular pulmonary nodule with interval increased density compared to prior, may represent calcifying nodule. admitted. cvc bed serial enzymes, NEG X 2 serial EKGs, echocardiogram, pending consult Cardiology. DVT prophylaxis, home meds. Full code. accuchecks cardiology verbal ok for d/c today, see [facility] NEXT WEEK, PCP SOON 28 min pt exam, chart review,D/C PLANNING TIME > 50% of time spent with exam, chart review, pt care coordination Vitals Vitals Vital Signs Date Time Temp Pulse Resp B/P (MAP) Pulse Ox O2 Delivery O2 Flow Rate FiO2 06/26/19 08:28 72 137/62 06/26/19 08:00 Room Air 06/26/19 07:00 97.8 18 96 97.8 Physical Exam Physical Exam HEENT: Head is normocephalic, atraumatic, pupils were equally round and reactive to light and accommodation. NECK: Supple, no JVD, no thyromegaly was noted. LUNGS: Clear to auscultation in all lung rodriguez without rhonchi or wheezing. HEART: RRR, S1, S2 present. Peripheral pulses intact, no obvious murmurs were noted. ABDOMEN: Soft, nontender. Positive bowel sounds no organomegaly, normal bowel sounds. EXTREMITIES: Without any cyanosis, clubbing, or edema. Pedal pulses intact, Homans sign is negative. NEUROLOGIC: Normal speech, normal tone. A and O x3, moves all extremities, no obvious focal deficits. PSYCHIATRIC: Normal affect, normal mood. Stable. SKIN: No ulcerations or rashes, good skin turgor, no jaundice. VASCULAR: Good capillary refill, neurovascular bundle appears to be intact. General: Alert, Oriented X3, Cooperative, No acute distress Heart: Regular rate Lungs: Clear Abdomen: Normal bowel sounds, Soft Extremities: No cyanosis Labs LABS CT ANGIOGRAPHY CHEST History: Chest pain. Radiating to back. Technique: CT chest without and with contrast. Angiogram protocol. Coronal and sagittal reconstructions were performed. 3-D reconstructions were performed. Exposure: One or more of the following individualized dose reduction techniques were utilized for this examination: 1. Automated exposure control 2. Adjustment of the mA and/or kV according to patient size 3. Use of iterative reconstruction technique. Comparison: January 19, 2018 Findings: Chest: No evidence of intramural hematoma, dissection or aortic injury. Atheromatous calcination within the nonaneurysmal aorta. No pulmonary embolism. Coronary artery calcification. No consolidation or pleural effusion. Increased left upper lobe lobulated increased density nodule measures 1.1 x 0.9 cm (compared to 0.9 x 0.9 cm previously). Left lower lobe pleural-based nodule, unchanged. Scattered bilateral lower lobe and lingular subsegmental atelectasis. Left apical 3 mm pulmonary nodule, unchanged. Upper abdomen: Prior cholecystectomy. Bones: No pathologic osseous lesions. Impression: 1. No acute aortic pathology or pulmonary embolism. 2. Increased left upper lobe irregular pulmonary nodule with interval increased density compared to prior, may represent calcifying nodule. Recommend short-term follow-up. Electronically signed by: Richmond Boateng DO (06/25/2019 3:16 PM) [facility] FINAL DIAGNOSIS Problems Medical Problems: (1) Chest pain Status: Acute Brief Hospital Course Ms. Varghese is a 89 old [sex] who presented with [ CHEST PAIN] CONDITION AT DISCHARGE: Improved Discharge Medications Current Medications Aspirin (Children'S Aspirin) 324 mg 1X ONCE PO Last administered on 06/25/19at 12:22; Start 06/25/19 at 12:15; Stop 06/25/19 at 12:16; Status DC Nitroglycerin (Nitrostat) 0.4 mg PRN Q5MIN PRN SL CHEST PAIN Last administered on 06/25/19at 12:58; Start 06/25/19 at 12:30 Ondansetron HCl (Zofran) 4 mg PRN Q8HRS PRN IV NAUSEA/VOMITING; Start 06/25/19 at 13:30; Stop 06/26/19 at 13:29 Acetaminophen (Tylenol) 650 mg PRN Q4HRS PRN PO FEVER; Start 06/25/19 at 13:30; Stop 06/26/19 at 13:29 Nitroglycerin (Nitrostat) 0.4 mg PRN Q5MIN PRN SL CHEST PAIN; Start 06/25/19 at 13:30; Stop 06/26/19 at 13:29; Status UNV Iohexol (Omnipaque 350 Mg/ml) 90 ml 1X ONCE IV Last administered on 06/25/19at 14:02; Start 06/25/19 at 13:45; Stop 06/25/19 at 13:46; Status DC Acetaminophen/ Codeine Phosphate (Tylenol #3) 1 tab PRN Q4HRS PRN PO PAIN; Start 06/25/19 at 15:15 Aspirin (Ecotrin) 81 mg DAILYWBKFT PO Last administered on 06/26/19 08:27; Start 06/26/19 at 08:00 Atorvastatin Calcium (Lipitor) 40 mg QHS PO Last administered on 06/25/19 21:19; Start 06/25/19 at 21:00 Glipizide (Glucotrol) 5 mg BIDWMEALS PO Last administered on 06/26/19 08:27; Start 06/25/19 at 17:00 Metformin HCl (Glucophage) 500 mg BIDWMEALS PO Last administered on 06/26/19 08:26; Start 06/25/19 at 17:00 Metoprolol Tartrate (Lopressor) 12.5 mg BID PO Last administered on 06/26/19 08:27; Start 06/25/19 at 21:00 Ticagrelor (Brilinta) 90 mg BID PO Last administered on 06/26/19 08:27; Start 06/25/19 at 21:00 Non-Formulary Medication (Losartan/ Hydrochlorothiazide (Losartan-Hctz 50-12.5 Mg Tab)) 1 tab DAILY PO ; Start 06/26/19 at 09:00; Status UNV Magnesium Oxide (Magnesium Oxide) 400 mg DAILY PO Last administered on 06/26/19 08:27; Start 06/26/19 at 09:00 Losartan Potassium (Cozaar) 50 mg DAILY PO Last administered on 06/26/19 08:28; Start 06/26/19 at 09:00 Hydrochlorothiazide (Microzide) 12.5 mg DAILY PO Last administered on 06/26/19 08:27; Start 06/26/19 at 09:00 Active Scripts Active Aspirin Ec (Aspirin) 81 Mg Tablet.dr 81 Mg PO DAILYWBKFT 60 Days Metoprolol Tartrate 25 Mg Tablet 12.5 Mg PO BID 60 Days Atorvastatin Calcium 40 Mg Tablet 40 Mg PO QHS 90 Days Brilinta (Ticagrelor) 90 Mg Tablet 90 Mg PO BID 60 Days Acetaminophen-Cod #3 Tablet (Acetaminophen/Codeine Phosphate) 1 Each Tablet 1 Tab PO PRN Q4HRS PRN Reported Glipizide 5 Mg Tablet 1 Tab PO BID Losartan-Hctz 50-12.5 Mg Tab (Losartan/Hydrochlorothiazide) 1 Each Tablet 1 Tab PO DAILY Magnesium (Magnesium Oxide) 400 Mg Capsule 500 Mg PO DAILY LAST DOSE GIVEN: DATE: 11/22 TIME: 9 am NEXT DOSE DUE: DATE: 11/23 TIME: 9 am Metformin Hcl 500 Mg Tablet 1 Tab PO BID LAST DOSE GIVEN: DATE: 11/22 TIME: 9 am NEXT DOSE DUE: DATE: 11/22 TIME: 5 pm Vital Signs Vital Signs Date Time Temp Pulse Resp B/P (MAP) Pulse Ox O2 Delivery O2 Flow Rate FiO2 06/26/19 11:00 97.4 68 18 110/54 (72) 99 Room Air 97.4 Labs Laboratory Tests Test 06/25/19 12:28 06/25/19 15:10 06/25/19 17:25 06/26/19 06:33 White Blood Count 6.9 x10^3/uL (4.0-11.0) 6.1 x10^3/uL (4.0-11.0) Red Blood Count 3.89 x10^6/uL (3.50-5.40) 3.66 x10^6/uL (3.50-5.40) Hemoglobin 12.2 g/dL (12.0-15.5) 11.5 g/dL (12.0-15.5) Hematocrit 35.9 % (36.0-47.0) 33.7 % (36.0-47.0) Mean Corpuscular Volume 92 fL (79-100) 92 fL (79-100) Mean Corpuscular Hemoglobin 31 pg (25-35) 32 pg (25-35) Mean Corpuscular Hemoglobin Concent 34 g/dL (31-37) 34 g/dL (31-37) Red Cell Distribution Width 16.3 % (11.5-14.5) 16.1 % (11.5-14.5) Platelet Count 202 x10^3/uL (140-400) 181 x10^3/uL (140-400) Neutrophils (%) (Auto) 51 % (31-73) 34 % (31-73) Lymphocytes (%) (Auto) 35 % (24-48) 47 % (24-48) Monocytes (%) (Auto) 13 % (0-9) 17 % (0-9) Eosinophils (%) (Auto) 1 % (0-3) 2 % (0-3) Basophils (%) (Auto) 1 % (0-3) 0 % (0-3) Neutrophils # (Auto) 3.5 x10^3/uL (1.8-7.7) 2.1 x10^3/uL (1.8-7.7) Lymphocytes # (Auto) 2.4 x10^3/uL (1.0-4.8) 2.8 x10^3/uL (1.0-4.8) Monocytes # (Auto) 0.9 x10^3/uL (0.0-1.1) 1.0 x10^3/uL (0.0-1.1) Eosinophils # (Auto) 0.1 x10^3/uL (0.0-0.7) 0.1 x10^3/uL (0.0-0.7) Basophils # (Auto) 0.0 x10^3/uL (0.0-0.2) 0.0 x10^3/uL (0.0-0.2) Sodium Level 132 mmol/L (136-145) 135 mmol/L (136-145) Potassium Level 4.4 mmol/L (3.5-5.1) 3.8 mmol/L (3.5-5.1) Chloride Level 96 mmol/L (98-107) 98 mmol/L (98-107) Carbon Dioxide Level 27 mmol/L (21-32) 28 mmol/L (21-32) Anion Gap 9 (6-14) 9 (6-14) Blood Urea Nitrogen 17 mg/dL (7-20) 12 mg/dL (7-20) Creatinine 0.9 mg/dL (0.6-1.0) 0.7 mg/dL (0.6-1.0) Estimated GFR (Cockcroft-Gault) 59.2 79.2 BUN/Creatinine Ratio 19 (6-20) 17 (6-20) Glucose Level 219 mg/dL (70-99) 106 mg/dL (70-99) Calcium Level 9.4 mg/dL (8.5-10.1) 8.9 mg/dL (8.5-10.1) Total Bilirubin 0.6 mg/dL (0.2-1.0) 0.7 mg/dL (0.2-1.0) Aspartate Amino Transf (AST/SGOT) 27 U/L (15-37) 35 U/L (15-37) Alanine Aminotransferase (ALT/SGPT) 33 U/L (14-59) 30 U/L (14-59) Alkaline Phosphatase 85 U/L (46-116) 75 U/L (46-116) Troponin I Quantitative < 0.017 ng/mL (0.000-0.055) < 0.017 ng/mL (0.000-0.055) HS-Spg-P-Type Natriuretic Peptide 75 pg/mL (0-449) Total Protein 7.4 g/dL (6.4-8.2) 6.8 g/dL (6.4-8.2) Albumin 4.2 g/dL (3.4-5.0) 3.8 g/dL (3.4-5.0) Albumin/Globulin Ratio 1.3 (1.0-1.7) 1.3 (1.0-1.7) Glucose (Fingerstick) 174 mg/dL (70-99) Magnesium Level 1.9 mg/dL (1.8-2.4) Test 06/26/19 07:42 06/26/19 11:56 Glucose (Fingerstick) 142 mg/dL (70-99) 127 mg/dL (70-99) Laboratory Tests Test 06/25/19 15:10 06/25/19 17:25 06/26/19 06:33 06/26/19 07:42 Troponin I Quantitative < 0.017 ng/mL (0.000-0.055) Glucose (Fingerstick) 174 mg/dL (70-99) 142 mg/dL (70-99) White Blood Count 6.1 x10^3/uL (4.0-11.0) Red Blood Count 3.66 x10^6/uL (3.50-5.40) Hemoglobin 11.5 g/dL (12.0-15.5) Hematocrit 33.7 % (36.0-47.0) Mean Corpuscular Volume 92 fL (79-100) Mean Corpuscular Hemoglobin 32 pg (25-35) Mean Corpuscular Hemoglobin Concent 34 g/dL (31-37) Red Cell Distribution Width 16.1 % (11.5-14.5) Platelet Count 181 x10^3/uL (140-400) Neutrophils (%) (Auto) 34 % (31-73) Lymphocytes (%) (Auto) 47 % (24-48) Monocytes (%) (Auto) 17 % (0-9) Eosinophils (%) (Auto) 2 % (0-3) Basophils (%) (Auto) 0 % (0-3) Neutrophils # (Auto) 2.1 x10^3/uL (1.8-7.7) Lymphocytes # (Auto) 2.8 x10^3/uL (1.0-4.8) Monocytes # (Auto) 1.0 x10^3/uL (0.0-1.1) Eosinophils # (Auto) 0.1 x10^3/uL (0.0-0.7) Basophils # (Auto) 0.0 x10^3/uL (0.0-0.2) Sodium Level 135 mmol/L (136-145) Potassium Level 3.8 mmol/L (3.5-5.1) Chloride Level 98 mmol/L (98-107) Carbon Dioxide Level 28 mmol/L (21-32) Anion Gap 9 (6-14) Blood Urea Nitrogen 12 mg/dL (7-20) Creatinine 0.7 mg/dL (0.6-1.0) Estimated GFR (Cockcroft-Gault) 79.2 BUN/Creatinine Ratio 17 (6-20) Glucose Level 106 mg/dL (70-99) Calcium Level 8.9 mg/dL (8.5-10.1) Magnesium Level 1.9 mg/dL (1.8-2.4) Total Bilirubin 0.7 mg/dL (0.2-1.0) Aspartate Amino Transf (AST/SGOT) 35 U/L (15-37) Alanine Aminotransferase (ALT/SGPT) 30 U/L (14-59) Alkaline Phosphatase 75 U/L (46-116) Total Protein 6.8 g/dL (6.4-8.2) Albumin 3.8 g/dL (3.4-5.0) Albumin/Globulin Ratio 1.3 (1.0-1.7) Test 06/26/19 11:56 Glucose (Fingerstick) 127 mg/dL (70-99) Allergies Allergies Coded Allergies Type Severity Reaction Last Updated Verified celecoxib Allergy Intermediate Nausea and Vomiting 08/02/15 Yes Disposition/Orders: D/C to Home ROSMERY ALVARADO MD Jun 26, 2019 13:06
[2019-06-26] MEDS ORDERED: NITR0.4T24 SL (13:08)
[2019-06-26] MEDS ORDERED: ACET325T9 PO (13:08)
--- NOTE | 2019-06-26 13:09 | DISCH ---
DISCHARGE INSTRUCTIONS Condition on Discharge Condition on Discharge: Stable Activity After Discharge Activity Instructions for Disc: Activity as tolerated Bathing Instructions: Shower-keep dressing dry Lifting Instructions after Dis: No heavy lifting, No pulling or pushing, Do not lift >10 pounds Exercise Instruction after Dis: Progress as tolerated Driving Instructions after Dis: Do not drive Weight Bearing Status after Di: As tolerated Diet after Discharge Diet after Discharge: Cardiac, Regular Additional Diet Restrictions: resume home diet Diet Texture: Regular Liquid Texture: Thin Liquid Swallowing Supervision: None needed Wound Incision Care Wound/Incision Care: Ice to area for comfort, Change dressing, May get incision wet Wound Care Equipment: Dressings Contacting the [facility] after DC Call your doctor for: Concerns you may have Treatment/Equipment after DC Adaptive Equipment Issued: None ROSMERY ALVARADO MD Jun 26, 2019 13:09
--- NOTE | 2019-06-26 13:38 | EKG ---
[facility] [address] [place] [address] Test Date: 2019-06-25 Test Time: 12:08:07 Pat Name: REAGAN EUCEDA Department: Room: 260 1 Gender: F Retail Sales Director: : [id number] Requested By: ALEX NORWOOD Order Number: [id number] Reading MD: Luis Orozco MD Measurements Intervals [place] Rate: 72 P: 59 AR: 258 QRS: -42 QRSD: 134 T: 0 QT: 400 QTc: 439 Interpretive Statements SINUS RHYTHM PROLONGED AR INTERVAL ABNORMAL LEFT AXIS DEVIATION LEFT ANTERIOR FASCICULAR BLOCK NON SPECIFIC INTRAVENTRICULAR BLOCK Electronically Signed On 07-11-2019 9:05:09 MANAGER STONE by Luis Orozco MD
--- NOTE | 2019-06-26 15:39 | NUR ---
Discharge Note: REAGAN EUCEDA [address] Discharge instructions and discharge home medications reviewed with Patient and a copy given. All questions have been answered and understanding verbalized. The following instructions and handouts were given: chest pain and cardiac diet. Discontinued iv lines and catheter intact. Patient discharged to home with self-care via private vehicle.
== END 2019-06-26 15:44 | disposition home or self-care (01) | DRG 392 ==
LOC: ER 11:59 → 2 NORTH 13:27 → 2 SOUTH 14:19
PROVIDERS: ADMIT Internal Medicine; ATTEND Internal Medicine
DX: K21.9 Gastro-esophageal reflux disease without esophagitis (principal); I25.10 Atherosclerotic heart disease of native coronary artery without angina pectoris; E11.9 Type 2 diabetes mellitus without complications; E78.5 Hyperlipidemia, unspecified; I10 Essential (primary) hypertension; I25.2 Old myocardial infarction; I48.91 Unspecified atrial fibrillation; Z82.49 Family history of ischemic heart disease and other diseases of the circulatory system; Z85.3 Personal history of malignant neoplasm of breast; Z90.710 Acquired absence of both cervix and uterus; Z95.5 Presence of coronary angioplasty implant and graft; Z86.718 Personal history of other venous thrombosis and embolism; Z79.01 Long term (current) use of anticoagulants; Z88.8 Allergy status to other drugs, medicaments and biological substances; Z79.899 Other long term (current) drug therapy
CPT/HCPCS: 36415; 71045; 71275; 80053; 82962; 83735; 83880; 84484; 85025; 93005; Q9967; 99285-25; G0378